=== PATIENT | female | born 2000 ===

== ENCOUNTER 2022-01-11 17:33 | Emergency (ER) | payer OTHER, MEDICAID ==
[2022-01-11] MEDS ORDERED: Acetaminophen 500 MG TAB ONE (18:38)
== END 2022-01-11 18:55 | disposition home or self-care (01) ==
LOC: ERS 17:33
DX: S40.022A Contusion of left upper arm, initial encounter (principal); V53.5XXA Driver of pick-up truck or van injured in collision with car, pick-up truck or van in traffic accident, initial encounter; W22.11XA Striking against or struck by driver side automobile airbag, initial encounter